=== PATIENT | female | born 1995 | race African-American/Black ===

== ENCOUNTER 2018-04-13 20:08 | Inpatient (IN) | payer OTHER ==
[2018-04-13 21:13] LABS: KETONE, URINE AUTO RFX NEGATIVE (NEGATIVE); LEUKOCYTE ESTERASE UR AUTO RFX NEGATIVE (NEGATIVE); MUCUS, URINE RFX SMALL (NEGATIVE); NITRITE, URINE AUTO RFX NEGATIVE (NEGATIVE); RBC, URINE AUTO RFX 1 /HPF (0-3); SPECIFIC GRAVITY UR AUTO RFX 1.026 (1.002-1.035); SQUAM EPITHELIAL CELL UR AURFX 3 /HPF (0-6); WBC, URINE AUTO RFX 2 /HPF (0-3)
[2018-04-13 23:21] LABS: CONTROL LINE UCG INT CTR LINE PRESENT; URINE PREG TEST NEGATIVE (NEGATIVE)
[2018-04-14 00:29] LABS: BASO % 0.5 % (0.0-1.0); EOS # 0.1 10^3/uL (0.0-0.50); EOS % 1.7 % (0.0-3.0); HEMATOCRIT 28.2 % (36.0-47.0); HEMOGLOBIN 8.4 g/dl (12.0-15.5); IMMATURE GRANULOCYTE % 0.2 % (0-3.0); LYMPH # 2.9 10^3/uL (1.5-6.5); MEAN CORPUSCULAR HEMOGLOBIN 22.4 pg (27.0-33.0); MEAN CORPUSCULAR HGB CONC 29.8 g/dl (32.0-36.5); MEAN CORPUSCULAR VOLUME 75.2 fl (80.0-96.0); MONO # 0.8 10^3/uL (0.0-0.8); MONO % 9.8 % (0.0-5.0); NEUTROPHILS # 4.2 10^3/uL (1.8-7.7); NEUTROPHILS % 51.8 % (36.0-66.0); PLATELET COUNT, AUTOMATED 368 10^3/uL (150-450); RED BLOOD COUNT 3.75 10^6/uL (4.00-5.40); WHITE BLOOD COUNT 8.1 10^3/uL (4.0-10.0)
[2018-04-14 00:48] LABS: ALBUMIN 3.4 GM/DL (3.2-5.2); ALBUMIN/GLOBULIN RATIO 0.81 (1.00-1.93); ALKALINE PHOSPHATASE 118 U/L (45-117); ALT/SGPT 24 U/L (12-78); ANION GAP 6 MEQ/L (8-16); AST/SGOT 43 U/L (7-37); BILIRUBIN,TOTAL 0.6 MG/DL (0.2-1.0); BLOOD UREA NITROGEN 15 MG/DL (7-18); CALCIUM LEVEL 8.2 MG/DL (8.5-10.1); CARBON DIOXIDE LEVEL 22 MEQ/L (21-32); CHLORIDE LEVEL 110 MEQ/L (98-107); CREATININE FOR GFR 0.59 MG/DL (0.55-1.30); GLOMERULAR FILTRATION RATE > 60.0 (>60); GLUCOSE, FASTING 81 MG/DL (70-100); LIPASE 119 U/L (73-393); POTASSIUM SERUM 4.8 MEQ/L (3.5-5.1); SODIUM LEVEL 138 MEQ/L (136-145); TOTAL PROTEIN 7.6 GM/DL (6.4-8.2)
[2018-04-14] MEDS: GI COCKTAIL 50ML BTL(HYOSCYAMINE/MAALOX/LIDOCAINE VISCOUS)(1:3:1) PO (01:11)
[2018-04-14] MEDS: GASTROGRAFIN SOLUTION 30ML PO ×2 (02:43→03:12)
[2018-04-14] MEDS ORDERED: ISOVUE-370 76% 100ML VIAL (Q9967) As Ordered (03:38)
[2018-04-14] MEDS: PANTOPRAZOLE 40MG INJ (PROTONIX) (C9113) IV ×2 (05:18→20:20)
[2018-04-14] MEDS ORDERED: ONDANSETRON 4MG/2ML VIAL (J2405) IV (06:00)
[2018-04-14 06:15] LABS: BASO % 0.7 % (0.0-1.0); EOS # 0.1 10^3/uL (0.0-0.50); EOS % 1.9 % (0.0-3.0); HEMATOCRIT 26.5 % (36.0-47.0); HEMOGLOBIN 7.7 g/dl (12.0-15.5); IMMATURE GRANULOCYTE % 0.3 % (0-3.0); LYMPH # 2.5 10^3/uL (1.5-6.5); LYMPH % 41.7 % (24.0-44.0); MEAN CORPUSCULAR HEMOGLOBIN 21.8 pg (27.0-33.0); MEAN CORPUSCULAR HGB CONC 29.1 g/dl (32.0-36.5); MEAN CORPUSCULAR VOLUME 74.9 fl (80.0-96.0); MONO # 0.7 10^3/uL (0.0-0.8); MONO % 11.1 % (0.0-5.0); NEUTROPHILS # 2.6 10^3/uL (1.8-7.7); NEUTROPHILS % 44.3 % (36.0-66.0); PLATELET COUNT, AUTOMATED 338 10^3/uL (150-450); RED BLOOD COUNT 3.54 10^6/uL (4.00-5.40); RED CELL DISTRIBUTION WIDTH 15.9 % (11.5-14.5); WHITE BLOOD COUNT 5.9 10^3/uL (4.0-10.0)
[2018-04-14] MEDS: NS 1,000 ML IV ×3 (06:21→21:30)
[2018-04-14 07:35] LABS: FERRITIN 2 NG/ML (8-252); IRON (FE) 21 UG/DL (50-170); PERCENT SATURATION 5.1 % (13.2-45.0); TOTAL IRON BINDING CAPACITY 414 UG/DL (250-450)
[2018-04-14] MEDS: ACETAMINOPHEN TAB 650MG DOSE (2X325MG) PO (08:30)
[2018-04-14 08:48] LABS: INR 1.13; PROTHROMBIN TIME 14.7 SECONDS (12.4-14.5)
[2018-04-14 08:49] LABS: PARTIAL THROMBOPLASTIN TIME 29.7 SECONDS (26.8-37.9)
[2018-04-14 10:39] LABS: VITAMIN B12 LEVEL 258 PG/ML (247-911)
[2018-04-14 10:40] LABS: FOLATE 18.4 NG/ML (>5.4)
[2018-04-14] MEDS ORDERED: LIDOCAINE 2% INJ 100 MG/5 ML SDV (FOR ANES.) As Ordered (12:33)
[2018-04-14] MEDS ORDERED: PROPOFOL 200 MG/20 ML VIAL As Ordered (12:33)
[2018-04-14] MEDS ORDERED: ONDANSETRON 4MG/2ML VIAL (J2405) As Ordered (13:03)
[2018-04-14 14:10] LABS: IMMEDIATE SPIN CROSSMATCH 1 2
[2018-04-14] MEDS ORDERED: SUCRALFATE SUSP 1GM/10ML UD As Ordered (17:13)
[2018-04-14] MEDS: PANTOPRAZOLE 40MG TAB (PROTONIX) PO (20:43)
[2018-04-14] MEDS: SUCRALFATE 1 GM TAB PO (21:21)
[2018-04-15 01:17] LABS: HEMATOCRIT 32.6 % (36.0-47.0)
[2018-04-15] MEDS: NS 1,000 ML IV (01:49)
[2018-04-15 04:53] LABS: HEMATOCRIT 30.9 % (36.0-47.0)
[2018-04-15 07:43] LABS: HEMOGLOBIN 9.5 g/dl (12.0-15.5); MEAN CORPUSCULAR HEMOGLOBIN 23.5 pg (27.0-33.0); MEAN CORPUSCULAR HGB CONC 30.8 g/dl (32.0-36.5); PLATELET COUNT, AUTOMATED 291 10^3/uL (150-450); RED BLOOD COUNT 4.05 10^6/uL (4.00-5.40)
[2018-04-15 07:47] LABS: ANION GAP 7 MEQ/L (8-16); BLOOD UREA NITROGEN 5 MG/DL (7-18); CALCIUM LEVEL 8.2 MG/DL (8.5-10.1); CARBON DIOXIDE LEVEL 24 MEQ/L (21-32); CHLORIDE LEVEL 112 MEQ/L (98-107); CREATININE FOR GFR 0.57 MG/DL (0.55-1.30); GLOMERULAR FILTRATION RATE > 60.0 (>60); GLUCOSE, FASTING 85 MG/DL (70-100); POTASSIUM SERUM 4.1 MEQ/L (3.5-5.1); SODIUM LEVEL 143 MEQ/L (136-145)
[2018-04-15] MEDS: FERROUS SULFATE 325MG TAB PO (08:22)
[2018-04-15] MEDS: PANTOPRAZOLE 40MG TAB (PROTONIX) PO (08:22)
[2018-04-15] MEDS: SUCRALFATE 1 GM TAB PO (08:22)
== END 2018-04-15 12:10 | disposition home or self-care (01) | DRG 378 ==
LOC: M ED 20:08 → M ED INP 04-14 05:49
PROVIDERS: Pediatrics
PROC: 0W3P8ZZ Control Bleeding in Gastrointestinal Tract, Via Natural or Artificial Opening Endoscopic (ICD-10-PCS; principal; 2018-04-14 12:00)
PROC: 30233N1 Transfusion of Nonautologous Red Blood Cells into Peripheral Vein, Percutaneous Approach (ICD-10-PCS; 2018-04-14 12:28)
DX: K28.4 Chronic or unspecified gastrojejunal ulcer with hemorrhage (principal); D62 Acute posthemorrhagic anemia; Z98.84 Bariatric surgery status; D50.9 Iron deficiency anemia, unspecified

== ENCOUNTER 2018-06-05 21:59 | Emergency (ER) | payer OTHER ==
[2018-06-05] MEDS: PANTOPRAZOLE 40MG INJ (PROTONIX) (C9113) IV (23:00)
[2018-06-05] MEDS: NS 1,000 ML IV (23:00)
[2018-06-05 23:53] LABS: INR 1.15; PROTHROMBIN TIME 14.8 SECONDS (12.1-14.4)
[2018-06-05 23:54] LABS: PARTIAL THROMBOPLASTIN TIME 26.3 SECONDS (25.4-37.6)
[2018-06-06 00:06] LABS: ANION GAP 7 MEQ/L (8-16); BLOOD UREA NITROGEN 11 MG/DL (7-18); CALCIUM LEVEL 8.2 MG/DL (8.5-10.1); CARBON DIOXIDE LEVEL 26 MEQ/L (21-32); CHLORIDE LEVEL 111 MEQ/L (98-107); CREATININE FOR GFR 0.64 MG/DL (0.55-1.30); GLOMERULAR FILTRATION RATE > 60.0 (>60); GLUCOSE, FASTING 79 MG/DL (70-100); IRON (FE) 23 UG/DL (50-170); PERCENT SATURATION 5.3 % (13.2-45.0); POTASSIUM SERUM 3.9 MEQ/L (3.5-5.1); SODIUM LEVEL 144 MEQ/L (136-145); TOTAL IRON BINDING CAPACITY 433 UG/DL (250-450)
[2018-06-06 00:10] LABS: BASO # 0.1 10^3/uL (0.0-0.2); BASO % 0.6 % (0.0-1.0); EOS # 0.1 10^3/uL (0.0-0.50); EOS % 1.6 % (0.0-3.0); HEMATOCRIT 32.5 % (36.0-47.0); HEMOGLOBIN 10.1 g/dl (12.0-15.5); IMMATURE GRANULOCYTE % 0.3 % (0-3.0); LYMPH # 2.5 10^3/uL (1.5-6.5); LYMPH % 28.7 % (24.0-44.0); MEAN CORPUSCULAR HEMOGLOBIN 24.6 pg (27.0-33.0); MEAN CORPUSCULAR HGB CONC 31.1 g/dl (32.0-36.5); MEAN CORPUSCULAR VOLUME 79.1 fl (80.0-96.0); MONO # 0.9 10^3/uL (0.0-0.8); NEUTROPHILS # 5.1 10^3/uL (1.8-7.7); NEUTROPHILS % 58.8 % (36.0-66.0); PLATELET COUNT, AUTOMATED 411 10^3/uL (150-450); RED BLOOD COUNT 4.11 10^6/uL (4.00-5.40); RED CELL DISTRIBUTION WIDTH 17.5 % (11.5-14.5); WHITE BLOOD COUNT 8.6 10^3/uL (4.0-10.0)
== END 2018-06-06 00:22 | disposition home or self-care (01) ==
LOC: M ED 06-06 00:22
DX: D50.9 Iron deficiency anemia, unspecified (principal); K21.9 Gastro-esophageal reflux disease without esophagitis; R11.0 Nausea; Z87.19 Personal history of other diseases of the digestive system; Z98.84 Bariatric surgery status; Z91.018 Allergy to other foods; Z79.899 Other long term (current) drug therapy
CPT/HCPCS: C9113

== ENCOUNTER 2018-08-05 16:46 | Emergency (ER) | payer OTHER ==
[2018-08-05 18:05] LABS: KETONE, URINE AUTO RFX NEGATIVE (NEGATIVE); MUCUS, URINE RFX SMALL (NEGATIVE); NITRITE, URINE AUTO RFX NEGATIVE (NEGATIVE); RBC, URINE AUTO RFX 3 /HPF (0-3); SPECIFIC GRAVITY UR AUTO RFX 1.018 (1.002-1.035); SQUAM EPITHELIAL CELL UR AURFX 4 /HPF (0-6); WBC, URINE AUTO RFX 4 /HPF (0-3)
[2018-08-05 18:06] LABS: LEUKOCYTE ESTERASE UR AUTO RFX TRACE (NEGATIVE)
[2018-08-05 20:18] LABS: HEMATOCRIT 34.3 % (36.0-47.0); HEMOGLOBIN 10.4 g/dl (12.0-15.5); MEAN CORPUSCULAR HGB CONC 30.3 g/dl (32.0-36.5); PLATELET COUNT, AUTOMATED 410 10^3/uL (150-450); RED BLOOD COUNT 4.34 10^6/uL (4.00-5.40); RED CELL DISTRIBUTION WIDTH 15.7 % (11.5-14.5); WHITE BLOOD COUNT 8.6 10^3/uL (4.0-10.0)
[2018-08-05] MEDS: ONDANSETRON 4 MG ORAL DISINTEGRATING TAB (Q0162 PER 1MG) PO (20:54)
[2018-08-05 21:05] LABS: HCG, SERUM QUANTITATIVE 25284 MIU/ML
== END 2018-08-05 23:03 | disposition home or self-care (01) ==
LOC: M ED 16:46
DX: O26.891 Other specified pregnancy related conditions, first trimester (principal); R11.0 Nausea; Z3A.01 Less than 8 weeks gestation of pregnancy; Z91.018 Allergy to other foods; Z79.899 Other long term (current) drug therapy
CPT/HCPCS: Q0162

== ENCOUNTER 2018-10-04 05:19 | Emergency (ER) | payer OTHER ==
[2018-10-04] MEDS: NS 1,000 ML IV (06:00)
[2018-10-04 06:18] LABS: BASO % 0.4 % (0.0-1.0); EOS # 0.1 10^3/uL (0.0-0.50); EOS % 1.2 % (0.0-3.0); HEMATOCRIT 31.8 % (36.0-47.0); HEMOGLOBIN 10.2 g/dl (12.0-15.5); IMMATURE GRANULOCYTE % 0.4 % (0-3.0); LYMPH # 2.1 10^3/uL (1.5-6.5); LYMPH % 24.4 % (24.0-44.0); MEAN CORPUSCULAR HEMOGLOBIN 25.3 pg (27.0-33.0); MEAN CORPUSCULAR HGB CONC 32.1 g/dl (32.0-36.5); MEAN CORPUSCULAR VOLUME 78.9 fl (80.0-96.0); MONO # 0.7 10^3/uL (0.0-0.8); MONO % 8.5 % (0.0-5.0); NEUTROPHILS # 5.5 10^3/uL (1.8-7.7); NEUTROPHILS % 65.1 % (36.0-66.0); PLATELET COUNT, AUTOMATED 278 10^3/uL (150-450); RED BLOOD COUNT 4.03 10^6/uL (4.00-5.40); RED CELL DISTRIBUTION WIDTH 17.3 % (11.5-14.5); WHITE BLOOD COUNT 8.5 10^3/uL (4.0-10.0)
[2018-10-04 06:47] LABS: ALBUMIN 2.7 GM/DL (3.2-5.2); ALBUMIN/GLOBULIN RATIO 0.77 (1.00-1.93); ALKALINE PHOSPHATASE 91 U/L (45-117); ALT/SGPT 18 U/L (12-78); ANION GAP 10 MEQ/L (8-16); AST/SGOT 15 U/L (7-37); BILIRUBIN,DIRECT < 0.1 MG/DL (0.0-0.2); BILIRUBIN,TOTAL 0.3 MG/DL (0.2-1.0); BLOOD UREA NITROGEN 8 MG/DL (7-18); CALCIUM LEVEL 8.3 MG/DL (8.5-10.1); CARBON DIOXIDE LEVEL 19 MEQ/L (21-32); CHLORIDE LEVEL 109 MEQ/L (98-107); CREATININE FOR GFR 0.53 MG/DL (0.55-1.30); GLOMERULAR FILTRATION RATE > 60.0 (>60); GLUCOSE, FASTING 88 MG/DL (70-100); LIPASE 85 U/L (73-393); POTASSIUM SERUM 3.8 MEQ/L (3.5-5.1); SODIUM LEVEL 138 MEQ/L (136-145); TOTAL PROTEIN 6.2 GM/DL (6.4-8.2)
[2018-10-04 08:24] LABS: APPEARANCE, URINE CLEAR (CLEAR); BACTERIA, URINE AUTO NEGATIVE (NEGATIVE); BILIRUBIN, URINE AUTO NEGATIVE (NEGATIVE); BLOOD, URINE BLOOD NEGATIVE (NEGATIVE); COLOR, URINE YELLOW (YELLOW); GLUCOSE, URINE (UA) AUTO NEGATIVE (NEGATIVE); KETONE, URINE AUTO NEGATIVE (NEGATIVE); LEUKOCYTE ESTERASE, URINE AUTO NEGATIVE (NEGATIVE); MUCUS, URINE SMALL (NEGATIVE); NITRITE, URINE AUTO NEGATIVE (NEGATIVE); PROTEIN, URINE AUTO NEGATIVE (NEGATIVE); RBC, URINE AUTO 0 /HPF (0-3); SPECIFIC GRAVITY URINE AUTO 1.014 (1.002-1.035); SQUAMOUS EPITHELIAL CELL UR AU 1 /HPF (0-6); UROBILINOGEN, URINE AUTO 0.2 mg/dL (0.0-2.0); WBC, URINE AUTO 0 /HPF (0-3)
[2018-10-04] MEDS: PANTOPRAZOLE 40MG INJ (PROTONIX) (C9113) IV (08:36)
[2018-10-04] MEDS: SUCRALFATE SUSP 1GM/10ML UD PO (08:36)
== END 2018-10-04 10:12 | disposition home or self-care (01) ==
LOC: M ED 05:19
DX: R10.9 Unspecified abdominal pain (principal); R11.10 Vomiting, unspecified
CPT/HCPCS: C9113

== ENCOUNTER 2018-12-09 19:26 | Emergency (ER) | payer OTHER ==
[~2018-12-09] VITALS: Ht 165.1 cm; Wt 80.9 kg
[~2018-12-09 19:26] MED LIST: FERR1TAB8 PO; FERR325T3 PO; MULT1CHW39 PO; PANT40TA3 PO; PROT1TAB2 PO; SUCR1SS PO; SUCR1TA PO; TYLE325T5 PO; ZOFR4TAB16 PO
[2018-12-09] MEDS ORDERED: PRENTAB29 (19:36)
[2018-12-09] MEDS ORDERED: FAMOTIDINE INJ 20MG/2ML VIAL (S0028) IVP ONE (20:00)
[2018-12-09] MEDS ORDERED: methylPREDNISolone INJ 125 MG/2 ML VIAL (J2930) IV ONE (20:00)
[2018-12-09 21:32] LABS: BASO % 0.2 % (0.0-1.0); EOS # 0.1 10^3/uL (0.0-0.50); EOS % 0.7 % (0.0-3.0); HEMATOCRIT 33.7 % (36.0-47.0); LYMPH # 1.6 10^3/uL (1.5-6.5); LYMPH % 18.9 % (24.0-44.0); MEAN CORPUSCULAR HEMOGLOBIN 27.3 pg (27.0-33.0); MEAN CORPUSCULAR HGB CONC 32.6 g/dl (32.0-36.5); MEAN CORPUSCULAR VOLUME 83.6 fl (80.0-96.0); MONO # 0.8 10^3/uL (0.0-0.8); MONO % 9.3 % (0.0-5.0); NEUTROPHILS # 5.9 10^3/uL (1.8-7.7); NEUTROPHILS % 70.5 % (36.0-66.0); PLATELET COUNT, AUTOMATED 277 10^3/uL (150-450); RED BLOOD COUNT 4.03 10^6/uL (4.00-5.40); WHITE BLOOD COUNT 8.4 10^3/uL (4.0-10.0)
[2018-12-09 21:52] LABS: ALBUMIN 2.9 GM/DL (3.2-5.2); ALT/SGPT 15 U/L (12-78); BILIRUBIN,DIRECT 0.1 MG/DL (0.0-0.2); BILIRUBIN,TOTAL 0.4 MG/DL (0.2-1.0); BLOOD UREA NITROGEN 10 MG/DL (7-18); CALCIUM LEVEL 8.4 MG/DL (8.5-10.1); CARBON DIOXIDE LEVEL 21 MEQ/L (21-32); CHLORIDE LEVEL 109 MEQ/L (98-107); CREATININE FOR GFR 0.48 MG/DL (0.55-1.30); GLOMERULAR FILTRATION RATE > 60.0 (>60); GLUCOSE, FASTING 75 MG/DL (70-100); LIPASE 223 U/L (73-393); POTASSIUM SERUM 3.8 MEQ/L (3.5-5.1); SODIUM LEVEL 139 MEQ/L (136-145); TOTAL PROTEIN 6.7 GM/DL (6.4-8.2)
--- NOTE | 2018-12-09 22:30 | REPVR ---
EXAM: US , Limited EXAM DATE/TIME: 12/09/2018 9:48 PM CLINICAL HISTORY: 23 years old, female; Pain; complicated by abdominal or pelvic pain; Upper; Second trimester; Gestational age or lmp: 24w 5d; ; Additional info: Abd pain 24 weeks preg TECHNIQUE: Real-time ultrasound of the maternal uterus with image documentation. Exam focused on the clinical indication. COMPARISON: Obs. Limited, MINDY US 10/04/2018 7:43 AM FINDINGS: GESTATION: Gestation: Single intrauterine fetus. Heart rate: heartbeat 149 beats per minute. Presentation: Cephalic presentation. Placenta: Anterior placenta. Abdomen: The bladder, stomach, kidneys and facial profile are normal. MATERNAL: Cervix: The cervix is is closed measuring 5.0 cm. IMPRESSION: 1. Single live intrauterine fetus in cephalic presentation. 2. Anterior placenta without previa. Electronically signed by: Arturo Estrada On 12/09/2018 22:30:04 PM
--- NOTE | 2018-12-09 23:11 | IPNPDOC ---
Text Note Date of Service The patient was seen on 12/09/18. NOTE ED consultation Alexandra Harman is a 23 yo at ~24 weeks gestation who presented to the ER due to an allergic reaction after eating pesto. She had SOB so she came to the ER. She was treated with benadryl and steroids and her symptoms resovled. While in the ER she had some pelvic cramping so OB was consulted. I asked for them to get a formal OB US and this was completed before I evaluated Ms. Harman. Upon my interview and exam her symptoms had completely resolved. She denied any vaginal bleeding, discharge, leakage of fluid, or pelvic cramping. She endorsed movement. Vitals - VSS, afebrile, normotensive, non tachcardic General - AAOX3, sitting up in bed, NAD Abdomen - gravid uterus, no fundal tenderness Rads: CLINICAL HISTORY: 23 years old, female; Pain; complicated by abdominal or pelvic pain; Upper; Second trimester; Gestational age or lmp: 24w 5d; ; Additional info: Abd pain 24 weeks preg TECHNIQUE: Real-time ultrasound of the maternal uterus with image documentation. Exam focused on the clinical indication. COMPARISON: Obs. Limited, MINDY US 10/04/2018 7:43 AM FINDINGS: GESTATION: Gestation: Single intrauterine fetus. Heart rate: heartbeat 149 beats per minute. Presentation: Cephalic presentation. Placenta: Anterior placenta. Abdomen: The bladder, stomach, kidneys and facial profile are normal. MATERNAL: Cervix: The cervix is is closed measuring 5.0 cm. IMPRESSION: 1. Single live intrauterine fetus in cephalic presentation. 2. Anterior placenta without previa. Electronically signed by: Arturo Estrada On 12/09/2018 22:30:04 PM A/P: Patient asymptomatic upon my evaluation in the ER. OB US normal, with cervix long and closed, measuring 5cm. Her SOB has resolved and she has no complaints at this time. She is stable for discharge from an OBGYN perspective. I recommended follow up with her OBGYN in the next week. Return to care sooner for any urgent concerns. All patient questions answered. Artie Bradley, VS,Fishbone, I+O VS, Fishbone, I+O Laboratory Tests 12/09/18 21:23 Red Blood Count 4.03, Mean Corpuscular Volume 83.6, Mean Corpuscular Hemoglobin 27.3, Mean Corpuscular Hemoglobin Concent 32.6, Red Cell Distribution Width 15.1 H, Neutrophils (%) (Auto) 70.5 H, Lymphocytes (%) (Auto) 18.9 L, Monocytes (%) (Auto) 9.3 H, Eosinophils (%) (Auto) 0.7, Basophils (%) (Auto) 0.2, Neutrophils # (Auto) 5.9, Lymphocytes # (Auto) 1.6, Monocytes # (Auto) 0.8, Eosinophils # (Auto) 0.1, Basophils # (Auto) 0.0 Vital Signs Date Time Temp Pulse Resp B/P (MAP) Pulse Ox O2 Delivery O2 Flow Rate FiO2 12/09/18 22:11 81 18 99 Room Air 12/09/18 22:00 114/64 (81) 12/09/18 19:27 98.4 ARTIE BRADLEY DO Dec 09, 2018 23:10
[2018-12-09 23:16] VITALS: BP 120/61
== END 2018-12-09 23:18 | disposition home or self-care (01) ==
LOC: M ED 19:26
DX: O99.89 Other specified diseases and conditions complicating pregnancy, childbirth and the puerperium (principal); R22.0 Localized swelling, mass and lump, head; R20.2 Paresthesia of skin; R06.02 Shortness of breath; Z91.018 Allergy to other foods; Z3A.24 24 weeks gestation of pregnancy; O99.842 Bariatric surgery status complicating pregnancy, second trimester
CPT/HCPCS: 76815; 80048; 80076; 83690; 85025; 93041; 94760; 96374; 96375; 99285; J2930

== ENCOUNTER 2019-01-26 16:19 | Outpatient (CLI) | payer OTHER ==
[~2019-01-26] VITALS: Ht 165.1 cm; Wt 86.1 kg
[~2019-01-26 16:19] MED LIST changes: +PRENTAB29
[2019-01-26 16:37] VITALS: BP 131/81
[2019-01-26] MEDS ORDERED: FERR325T3 PO (16:44)
[2019-01-26] MEDS ORDERED: PROBCAP4 PO (16:44)
[2019-01-26] MEDS ORDERED: PRENTAB9 PO (16:44)
[2019-01-26 18:07] VITALS: BP 136/72
== END 2019-01-26 19:30 | disposition home or self-care (01) ==
LOC: M LDO 16:19
PROVIDERS: ATTEND Obstetrics & Gynecology
DX: O26.853 Spotting complicating pregnancy, third trimester (principal); O26.893 Other specified pregnancy related conditions, third trimester; N89.8 Other specified noninflammatory disorders of vagina; O47.03 False labor before 37 completed weeks of gestation, third trimester; Z3A.31 31 weeks gestation of pregnancy
CPT/HCPCS: 59025; G0378; G0463

== ENCOUNTER → 2019-01-28 | Outpatient (REF) | payer OTHER ==
[~2019-01-28] MED LIST changes: +PRENTAB9 PO; +PROBCAP4 PO
[2019-01-28 13:30] LABS: HEMATOCRIT 30.3 % (36.0-47.0); HEMOGLOBIN 9.6 g/dl (12.0-15.5); MEAN CORPUSCULAR HGB CONC 31.7 g/dl (32.0-36.5); MEAN CORPUSCULAR VOLUME 82.1 fl (80.0-96.0); PLATELET COUNT, AUTOMATED 255 10^3/uL (150-450); RED BLOOD COUNT 3.69 10^6/uL (4.00-5.40)
[2019-01-28 14:38] LABS: HEPATITIS C VIRUS ABY INDEX 0.1 INDEX (<0.8); HIV 1&2 SCREEN CENTAUR NEGATIVE (NEGATIVE); RUBELLA IgG QUALITATIVE IMMUNE (IMMUNE)
== END ==
LOC: M LAB REF 12:23
PROVIDERS: ATTEND Nurse Practitioner Women's Health
DX: Z34.03 Encounter for supervision of normal first pregnancy, third trimester (principal); Z36.89 Encounter for other specified antenatal screening

== ENCOUNTER 2019-02-01 02:38 | Outpatient (CLI) | payer OTHER ==
[2019-02-01 03:01] VITALS: BP 111/65
[2019-02-01] MEDS ORDERED: ONDANSETRON 4 MG TAB (S0181) PO ONE (03:45)
[2019-02-01 06:19] VITALS: BP 125/78
[2019-02-01 07:16] VITALS: BP 126/57
== END 2019-02-01 07:23 | disposition home or self-care (01) ==
LOC: M LDO 02:38
PROVIDERS: ATTEND Obstetrics & Gynecology
DX: O21.2 Late vomiting of pregnancy (principal); Z3A.00 Weeks of gestation of pregnancy not specified
CPT/HCPCS: 59025; G0378; G0463

== ENCOUNTER 2019-02-18 22:14 | Outpatient (CLI) | payer OTHER ==
[~2019-02-18] VITALS: Ht 165.1 cm; Wt 86.5 kg
[~2019-02-18 22:14] MED LIST changes: -MULT1CHW39 PO; +MULT200T7 PO
[2019-02-18 22:39] VITALS: BP 131/86
[2019-02-18 23:29] LABS: CREATININE,RANDOM URINE 96.9 MG/DL; TOTAL PROTEIN,RANDOM URINE 16.8 MG/DL (0.0-12.0)
[2019-02-18 23:33] VITALS: BP 127/77
[2019-02-18 23:39] LABS: HEMATOCRIT 31.6 % (36.0-47.0); HEMOGLOBIN 9.6 g/dl (12.0-15.5); MEAN CORPUSCULAR HGB CONC 30.4 g/dl (32.0-36.5); MEAN CORPUSCULAR VOLUME 82.3 fl (80.0-96.0); PLATELET COUNT, AUTOMATED 146 10^3/uL (150-450); RED BLOOD COUNT 3.84 10^6/uL (4.00-5.40)
[2019-02-18 23:56] LABS: ALT/SGPT 25 U/L (12-78); BILIRUBIN,TOTAL 0.5 MG/DL (0.2-1.0); CREATININE FOR GFR 0.48 MG/DL (0.55-1.30); GLOMERULAR FILTRATION RATE > 60.0 (>60); LDH LACTATE DEHYDROGENASE 183 U/L (84-246); URIC ACID 3.2 MG/DL (2.6-6.0)
[2019-02-19 00:03] VITALS: BP 123/70
--- NOTE | 2019-02-19 00:19 | IPNPDOC ---
Text Note Date of Service The patient was seen on 02/19/19. NOTE 23yo CARLOS 03/26/19. Pt of [facility]. Presents @ 34w6d with complaints of elevated blood pressures at home. Hx significant for preeclampsia first . Pt states her previous provider told her to "check my pressure every 3-4 hours" Pt reports checking her pressure multiple times in one hour this evening. Denies UC, LOF, bleeding. Denies KEMP, visual disturbances, chest pain NAD VSS, normotensive. Cat I tracing. Rare UC Labs WNL. Urine ratio 0.17. Discharge home. Enc pt to check BP BID only or if she has symptoms Enc her to keep next appt. Warnings reviewed. VS,Fishbone, I+O VS, Fishbone, I+O Laboratory Tests 02/18/19 23:23 Red Blood Count 3.84 L, Mean Corpuscular Volume 82.3, Mean Corpuscular Hemoglobin 25.0 L, Mean Corpuscular Hemoglobin Concent 30.4 L, Red Cell Distribution Width 14.3, Aspartate Amino Transf (AST/SGOT) 16, Alanine Aminotransferase (ALT/SGPT) 25, Lactate Dehydrogenase 183, Total Bilirubin 0.5, Uric Acid 3.2 Vital Signs Date Time Temp Pulse Resp B/P (MAP) Pulse Ox O2 Delivery O2 Flow Rate FiO2 02/18/19 23:33 89 127/77 (94) 02/18/19 22:39 98.8 18 Angelina Levi CNM Feb 19, 2019 00:19
== END 2019-02-19 00:23 | disposition home or self-care (01) ==
LOC: M LDO 22:14
PROVIDERS: ATTEND Advanced Practice Midwife
DX: O26.893 Other specified pregnancy related conditions, third trimester (principal); O16.3 Unspecified maternal hypertension, third trimester; Z3A.34 34 weeks gestation of pregnancy
CPT/HCPCS: 36415; 59025; 82247; 82565; 82570; 83615; 84156; 84450; 84460; 84550; 85027; G0378; G0463

== ENCOUNTER → 2019-02-28 | Outpatient (REF) | payer OTHER ==
[2019-02-28 17:22] LABS: CREATININE,RANDOM URINE 54.5 MG/DL; TOTAL PROTEIN,RANDOM URINE 13.7 MG/DL (0.0-12.0)
== END ==
LOC: M LAB REF 12:12
PROVIDERS: ATTEND Nurse Practitioner Women's Health
DX: Z34.83 Encounter for supervision of other normal pregnancy, third trimester (principal); Z36.85 Encounter for antenatal screening for Streptococcus B; Z36.89 Encounter for other specified antenatal screening

== ENCOUNTER 2019-03-07 07:00 | Inpatient (IN) | payer OTHER ==
[2019-03-07] VITALS (27 sets, daily range): BP systolic 77–140; BP diastolic 46–86
[~2019-03-07] VITALS: Ht 162.6 cm; Wt 86.5 kg
[2019-03-07] MEDS ORDERED: LR 1,000 ML IV SCH (08:38)
[2019-03-07] MEDS ORDERED: LACTATED RINGER'S 1000 ML IV STA (08:38)
[2019-03-07 09:34] LABS: HEMATOCRIT 29.9 % (36.0-47.0); HEMOGLOBIN 9.4 g/dl (12.0-15.5); MEAN CORPUSCULAR HEMOGLOBIN 24.7 pg (27.0-33.0); MEAN CORPUSCULAR HGB CONC 31.4 g/dl (32.0-36.5); MEAN CORPUSCULAR VOLUME 78.5 fl (80.0-96.0); PLATELET COUNT, AUTOMATED 288 10^3/uL (150-450); RED BLOOD COUNT 3.81 10^6/uL (4.00-5.40); WHITE BLOOD COUNT 8.8 10^3/uL (4.0-10.0)
[2019-03-07] MEDS ORDERED: FENTANYL 2MCG/ML ROPIVACAINE 0.2% IN 0.9% NACL 100ML IVBAG As Ordered ONE (09:55)
[2019-03-07] MEDS ORDERED: ePHEDrine SULFATE 25 MG/5 ML(5MG/ML) SYRINGE As Ordered ONE (11:00)
[2019-03-07] MEDS ORDERED: FENTANYL/ROPIVACAINE/NACL BAG 100 ML EPIDURAL SCH (11:15)
[2019-03-07] MEDS ORDERED: ONDANSETRON 4MG/2ML VIAL (J2405) IV PRN (11:15)
[2019-03-07] MEDS ORDERED: EPIDURAL/PCA KEYS XX PRN (11:15)
[2019-03-07] MEDS ORDERED: EPIDURAL COMMENT XX SCH (11:15)
[2019-03-07] MEDS ORDERED: LACTATED RINGER'S 1000 ML IV PRN (11:15)
[2019-03-07] MEDS ORDERED: ePHEDrine SULFATE 25 MG/5 ML(5MG/ML) SYRINGE IV PRN (11:15)
[2019-03-07] MEDS ORDERED: NALOXONE INJ 0.4 MG/1 ML VIAL (J2310) IV PRN (11:15)
[2019-03-07] MEDS ORDERED: diphenhydrAMINE INJ 50MG/ML VIAL (J1200) IV PRN (11:15)
[2019-03-07] MEDS ORDERED: REFRIGERATOR IV KEYS XX PRN (11:15)
--- NOTE | 2019-03-07 12:41 | HPE ---
DATE OF ADMISSION: 03/07/2019 HISTORY OF PRESENT ILLNESS: Patient is a 23-year-old female who is a -0-0-1, at 37 weeks 2 days gestation with and estimated date of delivery (CARLOS) 03/26/2019 based off of her last menstrual period (LMP) and consistent with her first trimester ultrasound. Patient has initiated her care in her first trimester in [place] and transferred care to [facility] at 31 weeks and to [facility] at 37 weeks. Her has been complicated by anemia, a history of gastric bypass and a history of preeclampsia with her last . She presents to labor and delivery with complaints of contractions. She reports active movement. She denies vaginal bleeding or leaking of fluid. ALLERGIES: Nuts. MEDICATIONS: - vitamin - Zantac - iron PAST MEDICAL HISTORY: Varicella as a child. PAST SURGICAL HISTORY: Gastric bypass. FAMILY HISTORY: Noncontributory. SOCIAL HISTORY: She is . She is a student. She denies history of abuse. She denies being a smoker. Denies alcohol or drug abuse or use. Denies any history of sexually transmitted disease (STD). PAST OBSTETRIC HISTORY: October 2017, she delivered a male at 40 weeks gestation. Vaginal delivery at 5 pounds 14 ounces. She had pre-eclampsia and intrauterine growth restriction. LABS: Her blood type is A positive. Hemoglobin and hematocrit on 01/28/2019 was 10.8 and 33.8. Platelets were 261. Rubella immune. VDRL nonreactive. Urine no growth. Hepatitis B surface antigen negative. HIV negative. Hepatitis C negative. Gonorrhea, chlamydia negative. Her Pap was normal. [id number] noninvasive testing (NIPT) was negative. Hemoglobin A1c 5.2. VITAL SIGNS: Temperature 97.6, pulse 116, respiratory rate 18, blood pressure 138/75. heart rate 140, moderate variability. Positive acceleration. No decelerations. Contractions every 3-5 minutes. Cervical exam: Cervix is dilated 5 cm 80% effaced, -2 station. PHYSICAL EXAMINATION: Patient is alert and oriented. Abdomen is gravid and nontender to touch. Heart rate: Regular rate and rhythm. Lungs: Regular rate. No use of accessory muscles. Clear to auscultation bilaterally. Extremities: Generalized edema bilaterally, feet and legs. No clonus. Deep tendon reflexes are +1. ASSESSMENT: Intrauterine (IUP) at 37.2 weeks gestation. GBS negative. Category I heart rate tracing Active labor at term. PLAN: Admit to labor and delivery. Out of bed ad padma. Diet clear. IV to be started per protocol along with labs per protocol. Lactated Ringers 800 mL bolus prior to epidural and 125 mL after. Anesthesia consultation per patient's request. Anticipate cervical change and spontaneous vaginal delivery. MTDD
[2019-03-07] MEDS ORDERED: OXYTOCIN 30 UNITS IN 0.9% NaCl 500ML IV BAG (J2590) As Ordered ONE (13:21)
--- NOTE | 2019-03-07 13:32 | IPNPDOC ---
Obstetrical Progress Note Date of Service Mar 07, 2019 Subjective Patient comfortable with epidural but starting to feel vaginal pressure. Objective Vital Signs Date Time Temp Pulse Resp B/P (MAP) Pulse Ox O2 Delivery O2 Flow Rate FiO2 03/07/19 12:04 85 18 118/56 (76) 03/07/19 11:28 97.7 Assessment Heart Rate (FHR): 120 Variability: Moderate Accelerations: Positive Decelerations: None Heart Rate Tracing: Category I Tocometer Contractions: Yes Frequency: regular Sterile Vaginal Examination Dilation: 9 cm Effacement (%): 100% Station: 0 (AROM to a large amount of clear fluid) Postion/Presentation: Cephalic presentation ( hair felt with exam) Assessment and Plan EGA at Admission: 37.2 Status: Reassuring Group B Streptococcus: Negative Anticipate: Vaginal Delivery DAQUAN STRICKLAND CNM Mar 07, 2019 13:32
--- NOTE | 2019-03-07 14:52 | DN ---
DATE OF DELIVERY: 03/07/2019 TIME: 1356 hours DELIVERY: Spontaneous vaginal delivery. STATUS: Delivered. ANESTHESIA: Epidural. ESTIMATED BLOOD LOSS : 400 mL. FINDINGS: Female weighing 5 pounds 8 ounces/2500 grams. scores 8 and 9. The patient is a 23-year-old female who is now a G2, P2-0-0-2 at 37.2 weeks gestation, who presented to labor and delivery in active labor. The patient received an epidural for pain management. She progressed to fully dilated at 1343 hours and pushed to a living female at 1356 in the OA position with restitution to LALITA. The anterior shoulder delivered with ease and the corpus immediately followed. The baby was placed on the maternal abdomen, active and crying. The cord was clamped times two after two minutes and cut by the father of the baby. A three vessel cord was noted. The placenta delivered spontaneously and intact at 1400 hours. Uterine hemostasis was achieved via rapid infusion of IV Pitocin and uterine fundal massage. The perineum and vaginal were inspected and found to be intact with exception to a left labial abrasion that was not repaired. The mother plans on breast feeding this baby and they plan on naming her Kunal. Both mother and baby are in stable condition. All counts are correct.
[2019-03-07] MEDS ORDERED: OXYTOCIN DRIP 30 UNITS in APPROPRIATE DILUENT 1 EA IV SCH (14:58)
[2019-03-07] MEDS ORDERED: RHOGAM 300 MCG (1500 IU) INJ (J2790) IM SCH (15:00)
[2019-03-07] MEDS ORDERED: METHYLERGONOVINE MALEATE 0.2 MG TAB PO PRN (15:00)
[2019-03-07] MEDS ORDERED: DOCUSATE SODIUM 100 MG CAP PO PRN (15:00)
[2019-03-07] MEDS ORDERED: MEASLES,MUMPS,RUBELLA VACCINE INJ (MMR-II) (90707) SC SCH (15:00)
[2019-03-07] MEDS ORDERED: DIBUCAINE 1% OINTMENT 30GM TOP PRN (15:00)
[2019-03-07] MEDS: ACETAMINOPHEN 500 MG TAB PO PRN ×2 (17:36→23:52)
[2019-03-08] MEDS: KETOROLAC 30 MG/ML VIAL (J1885) IV SCH ×3 (02:31→18:12)
[2019-03-08 06:00] VITALS: BP 112/56
[2019-03-08] MEDS: ACETAMINOPHEN 500 MG TAB PO PRN ×3 (06:35→22:57)
[2019-03-08 09:05] VITALS: BP 118/64
[2019-03-08] MEDS: PRENATAL VITAMINS CHEWABLE TABLET PO SCH (09:19)
[2019-03-08 18:00] VITALS: BP 129/63
[2019-03-09] MEDS: KETOROLAC 30 MG/ML VIAL (J1885) IV SCH ×2 (02:10→10:00)
[2019-03-09 06:11] VITALS: BP 132/80
[2019-03-09] MEDS: PRENATAL VITAMINS CHEWABLE TABLET PO SCH (09:00)
[2019-03-09] MEDS ORDERED: MAPA500T2 PO (09:52)
== END 2019-03-09 11:05 | disposition home or self-care (01) | DRG 807 ==
LOC: M LDO 07:00 → M LDI 08:38 → M OBS 16:12
PROVIDERS: ADMIT Advanced Practice Midwife; ATTEND Advanced Practice Midwife
PROC: 10E0XZZ Delivery of Products of Conception, External Approach (ICD-10-PCS; principal; 2019-03-07)
DX: O99.02 Anemia complicating childbirth (principal); Z37.0 Single live birth; D64.9 Anemia, unspecified

== ENCOUNTER 2019-11-17 15:18 | Emergency (ER) | payer OTHER ==
[~2019-11-17] VITALS: Ht 165.1 cm; Wt 79.4 kg
[~2019-11-17 15:18] MED LIST changes: +MAPA500T2 PO
[2019-11-17 15:19] VITALS: BP 137/65
== END 2019-11-17 17:00 | disposition left against medical advice (07) ==
LOC: M ED 15:18
DX: Z53.21 Procedure and treatment not carried out due to patient leaving prior to being seen by health care provider (principal)

== ENCOUNTER 2019-12-30 02:31 | Emergency (ER) | payer OTHER ==
[~2019-12-30] VITALS: Ht 165.1 cm; Wt 85.0 kg
[2019-12-30] MEDS ORDERED: BENA25CA4 PO (02:54)
[2019-12-30] MEDS ORDERED: dexameTHASONE 20 MG/5 ML VIAL (J1100) IV ONE (03:45)
[2019-12-30] MEDS ORDERED: FAMOTIDINE INJ 20MG/2ML VIAL (S0028) IVP ONE (03:45)
[2019-12-30] MEDS ORDERED: NS 1,000 ML IV ONE (03:45)
[2019-12-30 05:41] VITALS: BP 145/82
[2019-12-30] MEDS ORDERED: PRED10TA2 PO (06:15)
[2019-12-30] MEDS ORDERED: CETI10CH PO (06:15)
[2019-12-30] MEDS ORDERED: EPIP0.3I2 IM (06:15)
[2019-12-30] MEDS ORDERED: HYDR-3363 PO ×2 (06:15)
[2019-12-30] MEDS ORDERED: CETIRIZINE (ZyrTEC) 10 MG TAB PO ONE (06:30)
== END 2019-12-30 06:41 | disposition home or self-care (01) ==
LOC: M ED 02:31
DX: T78.40XA Allergy, unspecified, initial encounter (principal); R09.89 Other specified symptoms and signs involving the circulatory and respiratory systems; L29.9 Pruritus, unspecified; Z98.84 Bariatric surgery status; Z91.018 Allergy to other foods; Z79.899 Other long term (current) drug therapy
CPT/HCPCS: 93041; 94760; 96361; 96374; 96375; 99284; J1100

== ENCOUNTER → 2020-02-17 | Outpatient (REF) | payer OTHER ==
[~2020-02-17] MED LIST changes: +BENA25CA4 PO; +CETI10CH PO; +EPIP0.3I2 IM; +HYDR-3363 PO; +PRED10TA2 PO
== END ==
LOC: M PLALAB 13:39
PROVIDERS: ATTEND Advanced Practice Midwife
DX: Z53.9 Procedure and treatment not carried out, unspecified reason (principal)

== ENCOUNTER → 2020-03-06 | Outpatient (REF) | payer OTHER ==
[2020-03-06 15:39] LABS: HEMATOCRIT 24.8 % (36.0-47.0); HEMOGLOBIN 7.2 g/dl (12.0-15.5); MEAN CORPUSCULAR HEMOGLOBIN 19.3 pg (27.0-33.0); MEAN CORPUSCULAR VOLUME 66.5 fl (80.0-96.0); PLATELET COUNT, AUTOMATED 360 10^3/uL (150-450); RED BLOOD COUNT 3.73 10^6/uL (4.00-5.40); WHITE BLOOD COUNT 7.1 10^3/uL (4.0-10.0)
[2020-03-06 15:41] LABS: CALCIUM LEVEL 9.1 MG/DL (8.5-10.1)
[2020-03-06 15:53] LABS: FOLATE 23.2 NG/ML (>5.4); VITAMIN B12 LEVEL 379 PG/ML (247-911)
[2020-03-06 17:10] LABS: CHLAMYDIA DNA AMPLIFICATION NEGATIVE (NEGATIVE); GC DNA AMPLIFICATION NEGATIVE (NEGATIVE)
[2020-03-07 10:59] LABS: HEPATITIS B SURFACE ANTIGEN NEGATIVE (NEGATIVE); HEPATITIS C VIRUS ABY INDEX 0.1 INDEX (<0.8); HIV 1&2 SCREEN CENTAUR NEGATIVE (NEGATIVE); RUBELLA IgG QUALITATIVE IMMUNE (IMMUNE)
== END ==
LOC: M PLALAB 12:27
PROVIDERS: ATTEND Advanced Practice Midwife
DX: O99.841 Bariatric surgery status complicating pregnancy, first trimester (principal)

== ENCOUNTER 2020-03-15 09:03 | Outpatient (CLI) | payer OTHER ==
[~2020-03-15] VITALS: Ht 162.6 cm; Wt 82.7 kg
[2020-03-15 09:05] VITALS: BP 138/76
[2020-03-15] MEDS ORDERED: IRON SUCROSE 500 MG in NS 250 ML OVER 4 HRS IV ONE (09:15)
[2020-03-15 09:48] VITALS: BP 127/64
[2020-03-15 10:45] VITALS: BP 169/73
[2020-03-15 11:45] VITALS: BP 128/73
[2020-03-15 12:45] VITALS: BP 134/62
[2020-03-15 13:10] VITALS: BP 136/80
[2020-03-15] MEDS ORDERED: PRENTAB9 PO (14:32)
== END 2020-03-15 13:10 | disposition home or self-care (01) ==
LOC: M INFU 09:03
PROVIDERS: ATTEND Advanced Practice Midwife
DX: D64.9 Anemia, unspecified (principal)

== ENCOUNTER 2020-03-15 14:25 | Emergency (ER) | payer OTHER ==
[~2020-03-15] VITALS: Ht 162.6 cm; Wt 82.3 kg
[2020-03-15] MEDS ORDERED: PRENTAB9 PO (14:32)
[2020-03-15] MEDS ORDERED: FAMOTIDINE 20 MG TAB PO ONE (15:15)
[2020-03-15] MEDS ORDERED: diphenhydrAMINE 25MG CAP PO ONE (15:15)
[2020-03-15] MEDS ORDERED: predniSONE 20 MG TAB PO ONE (15:15)
[2020-03-15 15:30] LABS: BASO % 0.3 % (0.0-1.0); EOS # 0.1 10^3/uL (0.0-0.5); EOS % 1.2 % (0.0-3.0); HEMATOCRIT 28.8 % (36.0-47.0); HEMOGLOBIN 8.2 g/dl (12.0-15.5); LYMPH # 1.6 10^3/uL (1.5-5.0); LYMPH % 21.2 % (24.0-44.0); MEAN CORPUSCULAR HEMOGLOBIN 19.4 pg (27.0-33.0); MEAN CORPUSCULAR HGB CONC 28.5 g/dl (32.0-36.5); MEAN CORPUSCULAR VOLUME 68.2 fl (80.0-96.0); MONO # 0.8 10^3/uL (0.0-0.8); MONO % 9.9 % (0.0-5.0); NEUTROPHILS # 5.2 10^3/uL (1.5-8.5); PLATELET COUNT, AUTOMATED 398 10^3/uL (150-450); RED BLOOD COUNT 4.22 10^6/uL (4.00-5.40); WHITE BLOOD COUNT 7.7 10^3/uL (4.0-10.0)
[2020-03-15 15:57] LABS: ALBUMIN 3.1 GM/DL (3.2-5.2); ALT/SGPT 15 U/L (12-78); BILIRUBIN,DIRECT 0.2 MG/DL (0.0-0.2); BILIRUBIN,TOTAL 0.4 MG/DL (0.2-1.0); BLOOD UREA NITROGEN 11 MG/DL (7-18); CALCIUM LEVEL 8.7 MG/DL (8.5-10.1); CARBON DIOXIDE LEVEL 19 MEQ/L (21-32); CHLORIDE LEVEL 111 MEQ/L (98-107); CREATININE FOR GFR 0.79 MG/DL (0.55-1.30); GLOMERULAR FILTRATION RATE > 60.0 (>60); GLUCOSE, FASTING 92 MG/DL (70-100); PHOSPHORUS LEVEL 4.3 MG/DL (2.5-4.9); POTASSIUM SERUM 3.9 MEQ/L (3.5-5.1); SODIUM LEVEL 139 MEQ/L (136-145); TOTAL PROTEIN 6.7 GM/DL (6.4-8.2)
[2020-03-15 16:17] VITALS: BP 124/71
--- NOTE | 2020-03-16 01:58 | ECGEPIP ---
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
== END 2020-03-15 16:26 | disposition home or self-care (01) ==
LOC: M ED 14:25
DX: D64.9 Anemia, unspecified (principal); R07.9 Chest pain, unspecified
CPT/HCPCS: 80048; 80076; 84100; 85025; 93005; 96365; 96366; 99284; J1756

== ENCOUNTER → 2020-03-16 | Outpatient (CLI) | payer OTHER | LOC: M PLALAB 14:45 | PROVIDERS: ATTEND Advanced Practice Midwife | DX: Z34.81 Encounter for supervision of other normal pregnancy, first trimester (principal) ==

== ENCOUNTER → 2020-04-18 | Outpatient (CLI) | payer OTHER | LOC: M WHC 09:20 | PROVIDERS: ATTEND Obstetrics & Gynecology | DX: Z34.92 Encounter for supervision of normal pregnancy, unspecified, second trimester (principal); Z53.9 Procedure and treatment not carried out, unspecified reason ==

== ENCOUNTER → 2020-05-23 | Outpatient (CLI) | payer OTHER ==
[~2020-05-23] MED LIST changes: +CYCL-707 PO; +PANT40TA29 PO; -PANT40TA3 PO
--- NOTE | 2020-05-24 03:11 | REP ---
OB ULTRASOUND: Real-time sonographic evaluation of gravid uterus performed utilizing transabdominal and endovaginal technique. There is a single living intrauterine gestation with an estimated gestational age of 20 weeks 6 days based on LMP, EDC 10/04/2020. Estimated age based on today's ultrasound 20 weeks 4 days, EDC 10/06/2020, indicating appropriate growth. BPD 49 mm = 20 weeks 5 days, 55th percentile HC 179 mm = 20 weeks 2 days, 44th percentile AC 152 mm = 20 weeks 3 days, 48th percentile Femur length 36 mm = 21 weeks 3 days, 72nd percentile HC/AC ratio 1.18, normal range 1.06 to 1.24 Estimated weight 380 grams, 56th percentile. Cervical length: Cervix closed and measures 3.5 cm in length. heart rate: 153 beats per minute. SEEN/GROSSLY UNREMARKABLE Lateral ventricles Yes Posterior fossa Yes Upper lip Yes Four-chamber heart Yes LVOT Yes RVOT Yes Stomach Yes Cord insertion Yes Three vessel cord Yes Kidneys Yes Bladder Yes Spine Yes position: Transverse with head toward the maternal left side. Placenta: Posterior with no previa or abruption. Placenta is grade 0. Inferior edge of the placenta is 3.7 cm from the internal cervical os. Amniotic fluid: Within normal limits.
== END ==
LOC: M WHC 13:05
PROVIDERS: ATTEND Obstetrics & Gynecology
DX: Z34.92 Encounter for supervision of normal pregnancy, unspecified, second trimester (principal); Z3A.20 20 weeks gestation of pregnancy

== ENCOUNTER → 2020-06-14 | Outpatient (REF) | payer OTHER ==
[2020-07-10 22:27] LABS: HEMATOCRIT 30.2 % (36.0-47.0); HEMOGLOBIN 9.4 g/dl (12.0-15.5); MEAN CORPUSCULAR HEMOGLOBIN 25.1 pg (27.0-33.0); MEAN CORPUSCULAR HGB CONC 31.1 g/dl (32.0-36.5); MEAN CORPUSCULAR VOLUME 80.5 fl (80.0-96.0); PLATELET COUNT, AUTOMATED 322 10^3/uL (150-450); RED BLOOD COUNT 3.75 10^6/uL (4.00-5.40); WHITE BLOOD COUNT 6.9 10^3/uL (4.0-10.0)
[2020-07-22 08:11] LABS: ALT/SGPT 28 U/L (12-78); BILIRUBIN,TOTAL 0.5 MG/DL (0.2-1.0); CREATININE FOR GFR 0.49 MG/DL (0.55-1.30); GLOMERULAR FILTRATION RATE > 60.0 (>60); LDH LACTATE DEHYDROGENASE 169 U/L (84-246); URIC ACID 3.9 MG/DL (2.6-6.0)
== END ==
LOC: M SFHCWAGY 09:53
PROVIDERS: ATTEND Advanced Practice Midwife
DX: Z34.90 Encounter for supervision of normal pregnancy, unspecified, unspecified trimester (principal); O13.9 Gestational [pregnancy-induced] hypertension without significant proteinuria, unspecified trimester
CPT/HCPCS: 36415; 82247; 82565; 83615; 84156; 84450; 84460; 84550; 85027; G0463

== ENCOUNTER → 2020-06-14 | Outpatient (CLI) | payer OTHER ==
[~2020-06-14] MED LIST changes: -CYCL-707 PO; -PANT40TA29 PO; +PANT40TA3 PO
== END ==
LOC: M LDO 20:50
PROVIDERS: ATTEND Advanced Practice Midwife
DX: Z34.90 Encounter for supervision of normal pregnancy, unspecified, unspecified trimester (principal)
CPT/HCPCS: G0378; G0463

== ENCOUNTER 2020-07-10 22:06 | Outpatient (CLI) | payer OTHER ==
[~2020-07-10] VITALS: Ht 160 cm; Wt 85.4 kg
[~2020-07-10 22:06] MED LIST changes: +PANT40TA29 PO; -PANT40TA3 PO
[2020-07-10 22:26] VITALS: BP 120/74
[2020-07-10 22:32] VITALS: BP 125/74
[2020-07-10 23:56] VITALS: BP 114/61
== END 2020-07-11 00:35 | disposition home or self-care (01) ==
LOC: M LDO 22:06
PROVIDERS: ATTEND Obstetrics & Gynecology
DX: O26.892 Other specified pregnancy related conditions, second trimester (principal); Z3A.27 27 weeks gestation of pregnancy
CPT/HCPCS: 76815; G0378; G0463

== ENCOUNTER 2020-08-07 11:16 | Outpatient (CLI) | payer OTHER ==
[~2020-08-07] VITALS: Ht 162.6 cm; Wt 89.0 kg
[2020-08-07 11:34] VITALS: BP 118/73
--- NOTE | 2020-08-07 13:07 | REPVR ---
PROCEDURE INFORMATION: Exam: US Retroperitoneal Limited, Kidneys Exam date and time: 08/07/2020 12:59 PM Age: 24 years old Clinical indication: Abdominal pain; ; Additional info: Right flank pain TECHNIQUE: Imaging protocol: Real-time ultrasound of the retroperitoneum with image documentation. Examination was focused on the kidneys. COMPARISON: CT ABD/PEL W/IV ORAL CONTRAS 04/14/2018 3:50 AM FINDINGS: Right kidney: The right kidney measures 12.1 x 5.3 x 6.0 cm. Resistive index 0.65 cm. There is very mild hydronephrosis. No demonstrated stone, cyst or mass. Left kidney: The left kidney measures 11.9 x 6.9 x 6.1 cm. Resistive index 0.64. Normal appearing echotexture. There is no hydronephrosis or demonstrated renal stone, cyst or mass. Bladder: The urinary bladder is not distended, but is grossly unremarkable in appearance. Uterus: Incidental note is made of an intrauterine gestation with heart rate 141 bpm. IMPRESSION: Very mild right-sided hydronephrosis. Electronically signed by: Vincent Jones On 08/07/2020 13:07:10 PM
[2020-08-07 13:09] VITALS: BP 117/65
[2020-08-07] MEDS ORDERED: MAPA500T2 PO (13:21)
[2020-08-07 14:52] VITALS: BP 114/59
--- NOTE | 2020-08-07 15:41 | IPNPDOC ---
Obstetrical Progress Note Date of Service Aug 07, 2020 Subjective S: 24-year-old 3 para 2 who presents at 32 weeks with complaints of a right side back pain. She denies any vaginal bleeding or leakage of fluid contractions or dysuria Objective: Vital signs stable and afebrile Category 1 heart tracing General: Well-appearing no acute distress Abdomen: Gravid nontender to palpation Back: Negative CVA tenderness right-sided tenderness along the right side of her spine Renal ultrasound was negative for renal stones only showing mild hydronephrosis Urinalysis: Negative Assessment: 24-year-old 3 para 2 with lower back pain Reassuring status Prescription for Flexeril 10 mg 3 times a day - labor precautions and kick count instructions Follow-up for OB appointment tomorrow Objective Vital Signs Date Time Temp Pulse Resp B/P (MAP) Pulse Ox O2 Delivery O2 Flow Rate FiO2 08/07/20 14:52 98.2 85 16 114/59 (77) 08/07/20 11:34 99 Room Air Assessment Variability: Moderate Accelerations: Positive Heart Rate Tracing: Category I Tocometer Contractions: No Assessment and Plan Age: 24 : 3 EGA at Admission: 2 Status: Reassuring DAMON SOFIA MD. Aug 07, 2020 15:41
[2020-08-07] MEDS ORDERED: CYCL-707 PO (16:50)
== END 2020-08-07 15:10 | disposition home or self-care (01) ==
LOC: M LDO 11:16
PROVIDERS: ATTEND Obstetrics & Gynecology
DX: O26.893 Other specified pregnancy related conditions, third trimester (principal); M54.89 Other dorsalgia; Z3A.32 32 weeks gestation of pregnancy
CPT/HCPCS: 59025; 76775; 81001; G0378; G0463

== ENCOUNTER 2020-08-17 21:46 | Outpatient (CLI) | payer OTHER ==
[~2020-08-17] VITALS: Ht 162.6 cm; Wt 87.9 kg
[~2020-08-17 21:46] MED LIST changes: +CYCL-707 PO
[2020-08-17 22:02] VITALS: BP 122/70
[2020-08-17 23:15] LABS: APPEARANCE, URINE CLEAR (CLEAR); BACTERIA, URINE AUTO NEGATIVE (NEGATIVE); BILIRUBIN, URINE AUTO NEGATIVE (NEGATIVE); BLOOD, URINE BLOOD NEGATIVE (NEGATIVE); COLOR, URINE YELLOW (YELLOW); GLUCOSE, URINE (UA) AUTO NEGATIVE (NEGATIVE); KETONE, URINE AUTO NEGATIVE (NEGATIVE); LEUKOCYTE ESTERASE, URINE AUTO NEGATIVE (NEGATIVE); NITRITE, URINE AUTO NEGATIVE (NEGATIVE); PROTEIN, URINE AUTO NEGATIVE (NEGATIVE); RBC, URINE AUTO 0 /HPF (0-3); SPECIFIC GRAVITY URINE AUTO 1.005 (1.002-1.035); SQUAMOUS EPITHELIAL CELL UR AU 0 /HPF (0-6); UROBILINOGEN, URINE AUTO 0.2 mg/dL (0.0-2.0); WBC, URINE AUTO 0 /HPF (0-3)
== END 2020-08-18 00:10 | disposition home or self-care (01) ==
LOC: M LDO 21:46
PROVIDERS: ATTEND Advanced Practice Midwife
DX: O26.893 Other specified pregnancy related conditions, third trimester (principal); Z3A.33 33 weeks gestation of pregnancy
CPT/HCPCS: 59025; 81001; 82731; G0378; G0463

== ENCOUNTER → 2020-08-28 | Outpatient (CLI) | payer OTHER ==
--- NOTE | 2020-08-31 11:54 | REP ---
LIMITED OB ULTRASOUND: 08/28/20 CLINICAL: Growth evaluation. COMPARISON: 05/23/20. FINDINGS: Ultrasound examination demonstrate single live advanced gestation in cephalic presentation. motion identified by technologist. Placenta noted posteriorly and grade 2 without evidence for placenta previa. Amniotic fluid volume is normal. Cervix appears closed. HR 156bpm. Gestational age by LMP 34 weeks 5 days with CARLOS 10/04/20. Gestational age by current measurements 33 weeks 4 days with CARLOS 10/12/20. BPD 8.2cm, 33 weeks 1 day. HC 30.2cm, 33 weeks 4 days. AC 29.3cm, 33 weeks 2 days. FL 6.6cm, 34 weeks 1 day. HL 5.96cm, 34 weeks 0 days. HC/AC Ratio 1.03. Estimated weight 2,222g (17th percentile). MINDY 12.5cm. IMPRESSION: Single live advanced gestation in cephalic presentation demonstrating relatively appropriate interval growth. MTDD
== END ==
LOC: M WHC 15:27
PROVIDERS: ATTEND Advanced Practice Midwife
DX: O99.843 Bariatric surgery status complicating pregnancy, third trimester (principal); Z3A.34 34 weeks gestation of pregnancy